=== PATIENT | male | born 1965 | race Caucasian/White ===

== ENCOUNTER 2016-06-20 17:03 | Emergency (ER) | payer OTHER ==
[2016-06-20 17:07] VITALS: TEMP 98.3; BMI 40.7
[2016-06-20] MEDS ORDERED: SODIUM CHLORIDE 1,000 ML IV STA (17:48)
[2016-06-20] MEDS ORDERED: ONDANSETRON 4 MG/2 ML VIAL IVPUSH ONE (17:55)
[2016-06-20] MEDS ORDERED: ACETAMINOPHEN 500 MG TABLET (FP) PO ONE (17:55)
--- NOTE | 2016-06-20 18:00 | PDOC ---
History of Present Illness - General Chief Complaint: Vomiting/Diarrhea Stated Complaint: VOMITING Time Seen by Provider: 06/20/16 17:28 History Source: Patient Exam Limitations: No Limitations - History of Present Illness Travel History: No Initial Comments: 06/20/16 17:56 51-year-old male presents to the ED with initially with fever 2 days ago followed by headache, sore throat and myalgia. Patient states is moist started with nausea followed by vomiting and had 2 loose episodes of diarrhea since. Patient currently complaining of chills, myalgia, and nausea. Patient denies recent travel, recent illness, recent sick contacts. Patient denies medical history and has not taken anything for the above. 06/20/16 19:00 Timing/Duration: reports: other (2 days) Quality: reports: moderate Abdominal Pain Onset Location: reports: periumbilical Pain Radiation: reports: no radiation Activities at Onset: reports: none Aggravating Factors: improves with: None Alleviating Factors: improves with: None Past History - Past Medical History Allergies/Adverse Reactions: Allergies Allergy/AdvReac Type Severity Reaction Status Date / Time No Known Allergies Allergy Verified 06/20/16 17:04 Home Medications: Ambulatory Orders NK [No Known Home Medication] 06/20/16 Other medical history: none - Psycho/Social/Smoking Cessation Hx Anxiety: No Suicidal Ideation: No Smoking History: Never smoked Have you smoked in the past 12 months: No Information on smoking cessation initiated: No Hx Alcohol Use: No Drug/Substance Use Hx: No Substance Use Type: None Patient Lives Alone: No Lives with/in: spouse/SO Abd/GI Specific PMHX - Complaint Specific PMHX Colitis: No Diverticulitis: No Review of Systems - Review of Systems Able to Perform ROS?: Yes Constitutional: Yes: Chills, Fever, Loss of Appetite HEENTM: Yes: Throat Pain Respiratory: No: Symptoms reported Cardiac (ROS): No: Symptoms Reported ABD/GI: Yes: Diarrhea, Nausea, Vomiting, Abdominal cramping : No: Symptoms Reported Musculoskeletal: No: Symptoms Reported Integumentary: No: Symptoms Reported Neurological: Yes: Headache (mild frontal) Endocrine: No: Symptoms Reported Hematologic/Lymphatic: No: Easy Bruising *Physical Exam - Vital Signs Last Vital Signs Temp Pulse Resp BP Pulse Ox 98.3 F 102 H 18 147/97 100 06/20/16 17:05 06/20/16 17:05 06/20/16 17:05 06/20/16 17:05 06/20/16 17:05 - Physical Exam General Appearance: Yes: Nourished, Appropriately Dressed. No: Apparent Distress HEENT: positive: EOMI, JAYLEEN, TMs Normal, Pharynx Normal. negative: Pale Conjunctivae Neck: positive: Normal Thyroid, Supple Respiratory/Chest: positive: Lungs Clear, Normal Breath Sounds. negative: Respiratory Distress, Accessory Muscle Use Cardiovascular: positive: Regular Rhythm, Tachycardia. negative: Murmur Gastrointestinal/Abdominal: positive: Soft, Tenderness (epigastric mild) Musculoskeletal: negative: CVA Tenderness Extremity: positive: Normal Capillary Refill. negative: Pedal Edema Integumentary: positive: Normal Color, Warm, Moist Neurologic: positive: Normal Mood/Affect, Motor Strength 5/5 (ambulatory) ED Treatment Course - LABORATORY CBC & Chemistry Diagram: 06/20/16 18:10 06/20/16 18:10 Medical Decision Making - Medical Decision Making 06/20/16 18:04 Patient with fever followed by headache sore throat and now with nausea. Patient with no acute findings except for mild epigastric tenderness on exam patient ordered for labs, influenza, IV fluids, antiemetics, and Tylenol. patient slightly tachycardic. 06/20/16 19:00 Laboratory Tests 06/20/16 06/20/16 18:10 18:10 WBC 9.5 Hgb 16.5 Hct 47.8 Plt Count 191 Neutrophils % 83.0 H Sodium 137 Potassium 3.8 Chloride 104 Carbon Dioxide 22 Anion Gap 11 BUN 14 Creatinine 1.1 Random Glucose 105 Calcium 8.2 L Magnesium 2.0 AST 37 ALT 45 Lipase 76 Patient states feeling better after receiving the above. Patient was negative for influenza LD discharged home with supportive care. *DC/Admit/Observation/Transfer Diagnosis at time of Disposition: Viral infection - Discharge Dispostion Disposition: HOME Condition at time of disposition: Improved - Patient Instructions Printed Discharge Instructions: DI for Viral Syndrome Additional Instructions: Please take, fluids prescribed and take Motrin or Tylenol every 6-8 hours. Please drink plenty of fluids and rest.
[2016-06-20] MEDS ORDERED: ACETAMINOPHEN 325 MG TABLET (FP) ONE (18:03)
[2016-06-20] MEDS ORDERED: ONDANSETRON 4 MG/2 ML VIAL ONE (18:03)
[2016-06-20 18:22] LABS: BASOPHIL 0.2 % (0-2.0); EOSINOPHIL 0.3 % (0-4.5); MCHC 34.4 g/dl (32.0-35.9); MEAN PLT VOLUME 9.6 fl (7.5-11.1); PLATELET COUNT 191 K/MM3 (134-434); RDW 13.6 % (11.9-15.9); WHITE BLOOD COUNT 9.5 K/mm3 (4.0-10.0)
[2016-06-20 18:46] LABS: ALBUMIN 4.1 g/dl (3.4-5.0); ALK PHOS 96 U/L (45-117); ANION GAP 11 (8-16); BILIRUBIN,TOTAL 0.7 mg/dL (0.2-1.0); CALCIUM 8.2 mg/dL (8.5-10.1); CO2 22 mmol/L (21-32); CREATININE 1.1 mg/dL (0.7-1.3); GLUCOSE,RANDOM 105 mg/dL (74-106); SGPT/ALT 45 U/L (12-78); TOT PROT 7.7 g/dl (6.4-8.2)
[2016-06-20 18:53] LABS: SGOT/AST 37 U/L (15-37)
--- NOTE | 2016-06-20 19:00 | PDOC ---
*Physical Exam - Vital Signs Last Vital Signs Temp Pulse Resp BP Pulse Ox 98.3 F 102 H 18 147/97 100 06/20/16 17:05 06/20/16 17:05 06/20/16 17:05 06/20/16 17:05 06/20/16 17:05 ED Treatment Course - LABORATORY CBC & Chemistry Diagram: 06/20/16 18:10 06/20/16 18:10 - ADDITIONAL ORDERS Additional order review: Laboratory Results 06/20/16 18:10 Sodium 137 Potassium 3.8 Chloride 104 Carbon Dioxide 22 Anion Gap 11 BUN 14 Creatinine 1.1 Creat Clearance w eGFR > 60 Random Glucose 105 Calcium 8.2 L Magnesium 2.0 Total Bilirubin 0.7 AST 37 ALT 45 Alkaline Phosphatase 96 Total Protein 7.7 Albumin 4.1 Lipase 76 06/20/16 18:10 RBC 5.50 MCV 87.0 MCHC 34.4 RDW 13.6 MPV 9.6 Neutrophils % 83.0 H Lymphocytes % 7.3 L Monocytes % 9.2 Eosinophils % 0.3 Basophils % 0.2 - Medications Given in the ED: ED Medications Discontinued Medications Generic Name Dose Route Start Last Admin Trade Name Freq PRN Reason Stop Dose Admin Acetaminophen 975 mg 06/20/16 17:55 06/20/16 18:12 Tylenol - PO 06/20/16 17:56 975 mg ONCE ONE Administration Sodium Chloride 1,000 mls @ 1,000 mls/hr 06/20/16 17:48 06/20/16 18:18 Normal Saline - IV 06/20/16 18:47 1,000 mls/hr ASDIR STA Administration Ondansetron HCl 4 mg 06/20/16 17:55 06/20/16 18:12 Zofran Injection IVPUSH 06/20/16 17:56 4 mg ONCE ONE Administration Medical Decision Making - Medical Decision Making 06/20/16 19:00 Pt seen by Midlevel Provider under my direct supervision Ancillary studies reviewed I agree with plan as outlined by Midlevel Provider *DC/Admit/Observation/Transfer Diagnosis at time of Disposition: Viral syndrome - Discharge Dispostion Disposition: HOME Condition at time of disposition: Improved - Patient Instructions Printed Discharge Instructions: DI for Viral Syndrome Additional Instructions: Please take, fluids prescribed and take Motrin or Tylenol every 6-8 hours. Please drink plenty of fluids and rest.
[2016-06-20 19:23] VITALS: BP 123/73; PULSE 86
== END 2016-06-20 19:23 | disposition home or self-care (01) ==
LOC: JER 17:03
PROC: 3E0337Z Introduction of Electrolytic and Water Balance Substance into Peripheral Vein, Percutaneous Approach (ICD-10-PCS; principal; 2016-06-20)
PROC: 3E033GC Introduction of Other Therapeutic Substance into Peripheral Vein, Percutaneous Approach (ICD-10-PCS; 2016-06-20)
DX: B34.9 Viral infection, unspecified (principal)
CPT/HCPCS: 36415; 80053; 83690; 83735; 85025; 87804; 96361; 96374; 99282-25